=== PATIENT | female | born 1970 | race Caucasian/White ===

== ENCOUNTER 2018-03-21 10:01 | Emergency (ER) | payer SELFPAY ==
[~2018-03-21] VITALS: Ht 152.4 cm; Wt 90.0 kg
[2018-03-21 14:21] VITALS: BP 119/68
== END 2018-03-21 14:21 | disposition home or self-care (01) ==
LOC: ER 10:39
DX: L03.012 Cellulitis of left finger (principal)
CPT/HCPCS: 73140; 99283

== ENCOUNTER 2018-03-27 09:56 | Emergency (ER) | payer SELFPAY ==
[~2018-03-27] VITALS: Ht 154.9 cm; Wt 91.0 kg
[2018-03-27 11:52] VITALS: BP 127/61
[2018-03-27] MEDS ORDERED: IBUPROFEN 600MG TABLET PO ONE (12:00)
== END 2018-03-27 12:12 | disposition home or self-care (01) ==
LOC: ER 09:56
DX: M79.645 Pain in left finger(s) (principal); R03.0 Elevated blood-pressure reading, without diagnosis of hypertension
CPT/HCPCS: 81025; 99282